=== PATIENT | male | born 1995 | race Caucasian/White ===

== ENCOUNTER → 2018-07-25 | Outpatient (CLI) | payer BC, OTHER ==
[2018-07-25 13:20] LABS: BASO # 0.1 10^3/uL (0.0-0.2); BASO % 1.1 % (0.0-1.0); EOS # 0.1 10^3/uL (0.0-0.50); EOS % 1.7 % (0.0-3.0); HEMATOCRIT 41.3 % (42.0-52.0); HEMOGLOBIN 14.5 g/dl (13.5-17.5); IMMATURE GRANULOCYTE % 0.2 % (0-3.0); LYMPH # 1.2 10^3/uL (1.5-6.5); LYMPH % 21.1 % (24.0-44.0); MEAN CORPUSCULAR HGB CONC 35.1 g/dl (32.0-36.5); MEAN CORPUSCULAR VOLUME 88.2 fl (80.0-96.0); MONO # 0.7 10^3/uL (0.0-0.8); MONO % 13.1 % (0.0-5.0); NEUTROPHILS # 3.4 10^3/uL (1.8-7.7); NEUTROPHILS % 62.8 % (36.0-66.0); PLATELET COUNT, AUTOMATED 310 10^3/uL (150-450); RED BLOOD COUNT 4.68 10^6/uL (4.30-6.10); WHITE BLOOD COUNT 5.4 10^3/uL (4.0-10.0)
[2018-07-25 13:48] LABS: TOTAL 25(OH) VITAMIN D 29.5 NG/ML (30.0-100.0)
[2018-07-25 14:46] LABS: FREE T4 0.96 NG/DL (0.76-1.46); THYROID STIMULATING HORMONE 0.536 uIU/ML (0.358-3.740)
== END ==
LOC: M SMT 09:56
DX: F33.1 Major depressive disorder, recurrent, moderate (principal); E55.9 Vitamin D deficiency, unspecified
CPT/HCPCS: 84443

== ENCOUNTER 2019-07-25 14:40 | Emergency (ER) | payer BC, OTHER ==
[~2019-07-25] VITALS: Ht 182.9 cm; Wt 68.2 kg
[2019-07-25] MEDS ORDERED: ESCI20TA PO (15:26)
[2019-07-25] MEDS ORDERED: CLON0.5T8 PO (15:26)
[2019-07-25] MEDS ORDERED: LAMO25TA57 PO (15:26)
[2019-07-25] MEDS ORDERED: ACETAMINOPHEN 325 MG TAB PO ONE (17:30)
--- NOTE | 2019-07-25 17:39 | REPVR ---
EXAM: CT Head Without Contrast EXAM DATE/TIME: 07/25/2019 5:26 PM CLINICAL HISTORY: 24 years old, male; Syncope and collapse TECHNIQUE: Imaging protocol: Computed tomography of the head without contrast. Radiation optimization: All CT scans at this facility use at least one of these dose optimization techniques: automated exposure control; mA and/or kV adjustment per patient size (includes targeted exams where dose is matched to clinical indication); or iterative reconstruction. COMPARISON: MRI-Brain W/O FOLL BY WITH 11/11/2014 4:53 PM FINDINGS: Brain: No intracranial hemorrhage or extra-axial fluid collection. Bilateral dentate nuclei calcifications. No evidence of mass effect or midline shift. Brooks-white matter differentiation is intact. Ventricles: No ventriculomegaly. Cavum septum pellucidum. Bones/joints: No acute osseus lesion or fracture. Sinuses: Unremarkable as visualized. Mastoid air cells: Unremarkable. Soft tissues: Unremarkable. IMPRESSION: No acute intracranial pathology. Electronically signed by: Demetrio Adorno On 07/25/2019 17:39:05 PM
[2019-07-25 18:01] LABS: BASO # 0.1 10^3/uL (0.0-0.2); BASO % 0.4 % (0.0-1.0); EOS % 0.1 % (0.0-3.0); HEMATOCRIT 42.3 % (42.0-52.0); HEMOGLOBIN 15.4 g/dl (13.5-17.5); LYMPH # 0.9 10^3/uL (1.5-5.0); LYMPH % 6.9 % (24.0-44.0); MEAN CORPUSCULAR HEMOGLOBIN 32.2 pg (27.0-33.0); MEAN CORPUSCULAR HGB CONC 36.4 g/dl (32.0-36.5); MEAN CORPUSCULAR VOLUME 88.5 fl (80.0-96.0); MONO # 0.6 10^3/uL (0.0-0.8); MONO % 4.6 % (0.0-5.0); NEUTROPHILS # 11.6 10^3/uL (1.5-8.5); NEUTROPHILS % 87.6 % (36.0-66.0); PLATELET COUNT, AUTOMATED 290 10^3/uL (150-450); RED BLOOD COUNT 4.78 10^6/uL (4.30-6.10); WHITE BLOOD COUNT 13.2 10^3/uL (4.0-10.0)
[2019-07-25 18:38] LABS: BLOOD UREA NITROGEN 4 MG/DL (7-18); CALCIUM LEVEL 9.6 MG/DL (8.5-10.1); CARBON DIOXIDE LEVEL 30 MEQ/L (21-32); CHLORIDE LEVEL 100 MEQ/L (98-107); CREATININE FOR GFR 0.64 MG/DL (0.70-1.30); GLOMERULAR FILTRATION RATE > 60.0 (>60); GLUCOSE, FASTING 88 MG/DL (70-100); POTASSIUM SERUM 4.1 MEQ/L (3.5-5.1); SODIUM LEVEL 136 MEQ/L (136-145); THYROID STIMULATING HORMONE 0.608 uIU/ML (0.358-3.740)
[2019-07-25 19:10] VITALS: BP 139/83
--- NOTE | 2019-07-26 19:16 | ECGEPIP ---
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
== END 2019-07-25 19:26 | disposition home or self-care (01) ==
LOC: M ED 14:40
DX: R55 Syncope and collapse (principal); T42.6X5A Adverse effect of other antiepileptic and sedative-hypnotic drugs, initial encounter; R53.83 Other fatigue; S00.03XA Contusion of scalp, initial encounter; W10.9XXA Fall (on) (from) unspecified stairs and steps, initial encounter; Y92.9 Unspecified place or not applicable; Q85.00 Neurofibromatosis, unspecified; F31.9 Bipolar disorder, unspecified; Z79.899 Other long term (current) drug therapy; Z88.2 Allergy status to sulfonamides

== ENCOUNTER → 2020-02-24 | Outpatient (CLI) | payer BC, OTHER ==
[~2020-02-24] MED LIST: CLON0.5T2 PO; ESCI20TA PO; LAMO25TA57 PO
== END ==
LOC: M LABSMTC 10:18
PROVIDERS: ATTEND Family Medicine
DX: Z11.59 Encounter for screening for other viral diseases (principal); Z20.828 Contact with and (suspected) exposure to other viral communicable diseases

== ENCOUNTER 2020-10-16 00:26 | Emergency (ER) | payer BC, OTHER ==
[~2020-10-16] VITALS: Ht 182.9 cm; Wt 75.0 kg
[2020-10-16] MEDS ORDERED: LEXA5TAB13 PO (00:35)
[2020-10-16 01:08] LABS: BASO # 0.1 10^3/uL (0.0-0.2); BASO % 0.9 % (0.0-1.0); EOS # 0.1 10^3/uL (0.0-0.5); EOS % 1.5 % (0.0-3.0); HEMATOCRIT 39.2 % (42.0-52.0); HEMOGLOBIN 13.4 g/dl (13.5-17.5); LYMPH # 1.9 10^3/uL (1.5-5.0); LYMPH % 28.7 % (24.0-44.0); MEAN CORPUSCULAR HEMOGLOBIN 29.9 pg (27.0-33.0); MEAN CORPUSCULAR HGB CONC 34.2 g/dl (32.0-36.5); MEAN CORPUSCULAR VOLUME 87.5 fl (80.0-96.0); MONO # 0.7 10^3/uL (0.0-0.8); MONO % 9.8 % (0.0-5.0); PLATELET COUNT, AUTOMATED 260 10^3/uL (150-450); RED BLOOD COUNT 4.48 10^6/uL (4.30-6.10); WHITE BLOOD COUNT 6.8 10^3/uL (4.0-10.0)
[2020-10-16 01:44] LABS: BLOOD UREA NITROGEN 11 MG/DL (7-18); CALCIUM LEVEL 8.9 MG/DL (8.5-10.1); CARBON DIOXIDE LEVEL 27 MEQ/L (21-32); CHLORIDE LEVEL 108 MEQ/L (98-107); CREATININE FOR GFR 0.71 MG/DL (0.70-1.30); GLOMERULAR FILTRATION RATE > 60.0 (>60); GLUCOSE, FASTING 84 MG/DL (70-100); POTASSIUM SERUM 3.9 MEQ/L (3.5-5.1); SODIUM LEVEL 142 MEQ/L (136-145)
[2020-10-16] MEDS ORDERED: ACETAMINOPHEN 500 MG TAB PO ONE (01:45)
[2020-10-16] MEDS ORDERED: NS 1,000 ML IV ONE (01:45)
[2020-10-16] MEDS ORDERED: ONDANSETRON 4MG/2ML VIAL IV ONE (01:45)
--- NOTE | 2020-10-16 02:04 | REPVR ---
PROCEDURE INFORMATION: Exam: CT Head Without Contrast Exam date and time: 10/16/2020 1:53 AM Age: 25 years old Clinical indication: Syncope and collapse; Additional info: Syncope, HX neurofibromatosis TECHNIQUE: Imaging protocol: Computed tomography of the head without contrast. Radiation optimization: All CT scans at this facility use at least one of these dose optimization techniques: automated exposure control; mA and/or kV adjustment per patient size (includes targeted exams where dose is matched to clinical indication); or iterative reconstruction. COMPARISON: CT Head without contrast 07/25/2019 5:29 PM FINDINGS: Brain: Coarse calcifications in the medial cerebellar hemispheres bilaterally which is unchanged from a prior study. Upper normal sulci for age which is similar to the prior study. Cerebral ventricles: No ventriculomegaly. Bones/joints: Unremarkable. No acute fracture. Paranasal sinuses: Visualized sinuses are unremarkable. No fluid levels. Mastoid air cells: Visualized mastoid air cells are well aerated. Soft tissues: Unremarkable. IMPRESSION: There has been no change since 07/25/2019. Coarse bilateral central cerebellar calcifications are again noted. No acute interval intracranial process is identified. Electronically signed by: Santhosh Dykes On 10/16/2020 02:04:41 AM
[2020-10-16 02:29] VITALS: BP 125/72
--- NOTE | 2020-10-16 06:44 | ECGEPIP ---
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
== END 2020-10-16 02:47 | disposition home or self-care (01) ==
LOC: M ED 00:26
DX: R55 Syncope and collapse (principal); R41.3 Other amnesia; Q85.00 Neurofibromatosis, unspecified; Z79.899 Other long term (current) drug therapy; Z88.1 Allergy status to other antibiotic agents; Z88.2 Allergy status to sulfonamides
CPT/HCPCS: 70450; 80048; 84443; 85025; 93005; 96361; 96374; 99284; J2405

== ENCOUNTER → 2020-10-19 | Outpatient (CLI) | payer BC, OTHER ==
[~2020-10-19] MED LIST changes: +LEXA5TAB13 PO
--- NOTE | 2020-10-22 13:39 | SLEEPHOME ---
NOCTURNAL POLYSOMNOGRAPHY HOME DATE OF STUDY: 10/19/2020 ORDERED BY: Dr. Augustus Espinosa Diagnostic home sleep testing was performed due to concern for the obstructive sleep apnea syndrome in this patient with fatigue and nonrestorative sleep. For testing, a nocturnal T3 respiratory monitoring device was used. Continuous record was made of pulse, oxygen saturation, air flow, chest and abdominal strain, and body position. There was 9 hours and 59 minutes of data reviewed. There was 6 hours and 1 minute marked as time in bed. During the interval marked time in bed there were 41 respiratory events identified of 10 seconds in duration or greater for a respiratory event index of 6.8. The events were primarily obstructive. They were more frequent in the supine posture. Baseline pulse rate 66 beats per minute. Pulse rate ranged 38-152. Baseline saturation was 96%. Saturations did fall to 82%, and testing was performed in the both the supine and nonsupine positions. IMPRESSION: Abnormal home sleep testing with repetitive respiratory events and oxygen desaturations to 82% with a respiratory event index of 6.8 is consistent with the obstructive sleep apnea syndrome. RECOMMENDATION: As the events were more frequently associated with the supine posture, sleep position retraining for avoidance of the supine posture may be helpful. If symptoms persist, referral for formal evaluation could considered.
== END ==
LOC: M SLEEP HO 10:23
PROVIDERS: ATTEND Physician Assistant
DX: Z00.00 Encounter for general adult medical examination without abnormal findings (principal)

== ENCOUNTER 2021-03-19 11:09 | Emergency (ER) | payer OTHER, BC ==
[~2021-03-19] VITALS: Ht 162.6 cm; Wt 70.5 kg
[~2021-03-19 11:09] MED LIST changes: -ESCI20TA PO; +ESCI20TA16 PO
[2021-03-19] MEDS ORDERED: LAMO100T68 (11:21)
--- NOTE | 2021-03-19 11:50 | REP ---
INDICATION: Syncope. COMPARISON: 10/16/2020. TECHNIQUE: CT brain performed in the axial plane. Coronal reconstruction images are performed. FINDINGS: The ventricles are normal in size and position.. There is no midline shift or mass effect. Brooks-white differentiation is well maintained. There is no acute intracranial hemorrhage or extra-axial fluid collection. Old bilateral cerebellar calcifications are stable. Bone window examination is unremarkable. The visualized mastoid air cells and paranasal sinuses are clear. IMPRESSION: Negative noncontrast CT brain. <Electronically signed by Rip Brooks > 03/19/21 [id number]
--- NOTE | 2021-03-19 11:54 | REP ---
INDICATION: Syncope/near-syncope. COMPARISON: None. TECHNIQUE: Single portable AP view of the chest was performed. FINDINGS: There is no acute infiltrate or pulmonary edema. Lungs are clear. The heart is not significantly enlarged. The mediastinal silhouette is unremarkable. The visualized osseous structures are intact. IMPRESSION: No acute pulmonary disease. <Electronically signed by Rip Brooks > 03/19/21 [id number]
--- NOTE | 2021-03-19 11:54 | REP ---
INDICATION: Syncope. COMPARISON: 07/09/2012. TECHNIQUE: CT cervical spine performed in the axial plane, with sagittal and coronal reconstruction images performed. FINDINGS: There is no acute compression fracture or malalignment. There is no prevertebral soft tissue swelling. Disc spaces are well preserved. There is normal cervical lordosis. There is no abnormal density in the spinal canal. IMPRESSION: No evidence of acute fracture or dislocation. <Electronically signed by Rip Brooks > 03/19/21 [id number]
[2021-03-19 12:39] LABS: BASO # 0.1 10^3/uL (0.0-0.2); EOS % 0.4 % (0.0-3.0); HEMATOCRIT 41.2 % (42.0-52.0); HEMOGLOBIN 14.5 g/dl (13.5-17.5); LYMPH # 1.2 10^3/uL (1.5-5.0); LYMPH % 17.6 % (24.0-44.0); MEAN CORPUSCULAR HEMOGLOBIN 30.2 pg (27.0-33.0); MEAN CORPUSCULAR HGB CONC 35.2 g/dl (32.0-36.5); MEAN CORPUSCULAR VOLUME 85.8 fl (80.0-96.0); MONO # 0.6 10^3/uL (0.0-0.8); MONO % 9.5 % (2.0-8.0); NEUTROPHILS # 4.8 10^3/uL (1.5-8.5); NEUTROPHILS % 71.2 % (36.0-66.0); PLATELET COUNT, AUTOMATED 290 10^3/uL (150-450); WHITE BLOOD COUNT 6.8 10^3/uL (4.0-10.0)
[2021-03-19] MEDS ORDERED: NS 1,000 ML IV ONE ×2 (12:40)
[2021-03-19 12:50] LABS: INR 1.08; PROTHROMBIN TIME 14.3 SECONDS (12.5-14.3)
[2021-03-19 12:51] LABS: PARTIAL THROMBOPLASTIN TIME 29.8 SECONDS (24.2-38.5)
[2021-03-19 13:01] LABS: AMPHETAMINES LEVEL URINE NEGATIVE (NEGATIVE); BARBITURATES URINE NEGATIVE (NEGATIVE); BENZODIAZEPINES URINE NEGATIVE (NEGATIVE); CANNABINOIDS URINE NEGATIVE (NEGATIVE); COCAINE METABOLITE URINE NEGATIVE (NEGATIVE); METHADONE URINE NEGATIVE (NEGATIVE); OPIATES URINE NEGATIVE (NEGATIVE); PHENCYCLIDINE URINE NEGATIVE (NEGATIVE)
[2021-03-19 13:12] LABS: BLOOD UREA NITROGEN 8 MG/DL (7-18); CALCIUM LEVEL 9.7 MG/DL (8.5-10.1); CARBON DIOXIDE LEVEL 26 MEQ/L (21-32); CHLORIDE LEVEL 107 MEQ/L (98-107); CK-MB VALUE MASS < 1.0 NG/ML (<3.6); CPK CREATINE PHOSPHOKINASE 51 U/L (39-308); CREATININE FOR GFR 0.57 MG/DL (0.70-1.30); ETHYL ALCOHOL (ETHANOL) < 0.003 % (0.000-0.010); FREE T4 1.36 NG/DL (0.76-1.46); GLOMERULAR FILTRATION RATE > 60.0 (>60); GLUCOSE, FASTING 86 MG/DL (70-100); MAGNESIUM LEVEL 2.1 MG/DL (1.8-2.4); MB/CK RELATIVE INDEX 1.96 (< OR =4); SODIUM LEVEL 139 MEQ/L (136-145); THYROID STIMULATING HORMONE 0.984 uIU/ML (0.358-3.740); TROPONIN I < 0.02 NG/ML (< 0.10)
--- NOTE | 2021-03-19 15:36 | ECGEPIP ---
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
[2021-03-19 16:30] VITALS: BP 118/65
== END 2021-03-19 16:43 | disposition home or self-care (01) ==
LOC: M ED 11:09 → EDBD 11:09 → M ED 16:43
DX: R55 Syncope and collapse (principal); Q85.00 Neurofibromatosis, unspecified; Z79.899 Other long term (current) drug therapy; Z88.1 Allergy status to other antibiotic agents; Z88.2 Allergy status to sulfonamides

== ENCOUNTER → 2022-07-27 | Outpatient (REF) | payer OTHER, BC ==
[~2022-07-27] MED LIST changes: +LAMO100T68
[2022-07-27 19:01] LABS: GC DNA AMPLIFICATION NEGATIVE (NEGATIVE)
== END ==
LOC: M LAB REF 17:13
PROVIDERS: ATTEND Physician Assistant
DX: N34.2 Other urethritis (principal)